=== PATIENT | male | born 2000 | race Caucasian/White ===

== ENCOUNTER 2025-06-10 03:42 | Emergency (ER) | payer MEDICAID ==
[~2025-06-10] VITALS: Ht 182.9 cm; Wt 87.0 kg
[2025-06-10 03:48] VITALS: O2SAT 98
[2025-06-10] MEDS ORDERED: DOXY100T28 MT (03:58)
[2025-06-10] MEDS ORDERED: DOLU50TA MT (03:58)
[2025-06-10] MEDS ORDERED: EMTR1TAB11 MT (03:58)
[2025-06-10] MEDS: DOXYCYCLINE HYCLATE 100MG CAPSULE PO ONE (04:15)
[2025-06-10] MEDS: CEFTRIAXONE SODIUM 500MG VIAL IM ONE (04:15)
[2025-06-10 04:28] LABS: CREATININE 1.1 mg/dL (0.6-1.3); UREA NITROGEN BLOOD 9 mg/dL (9-23)
[2025-06-10 04:30] LABS: ASPARTATE AMINOTRANSFERASE 234 IU/L (<34)
[2025-06-10 04:31] LABS: BILIRUBIN TOTAL 0.6 mg/dL (0.1-1.0); PROTEIN TOTAL 7.7 g/dL (6.0-8.3)
[2025-06-10 04:47] VITALS: BP 127/86; PULSE 66; RESP 15; TEMP 37.1; O2SAT 100
== END 2025-06-10 04:49 | disposition home or self-care (01) ==
LOC: ER 03:42
DX: Z00.8 Encounter for other general examination (principal); Z79.624 Long term (current) use of inhibitors of nucleotide synthesis; Z79.899 Other long term (current) drug therapy
CPT/HCPCS: 99283; 80053; 36415; 96372; J0696